=== PATIENT | female | born 1960 | race Caucasian/White ===

== ENCOUNTER 2024-01-20 20:15 | Emergency (ER) | payer BC, SELFPAY ==
[2024-01-20 20:17] VITALS: BP 162/102
[2024-01-20 20:31] VITALS: BMI 31.3
--- NOTE | 2024-01-20 20:47 | ED.GENMED ---
History of Present Illness
General
Chief Complaint: Rectal Bleeding
Source: patient
Exam Limitations: none
Time Seen by Provider: 01/20/24 20:32
History of Present Illness
History of Present Illness:
This is a 63 year old female that comes in with c/o diarrhea and bloody stool. States that she started yesterday with diarrhea. States that today she started with bloody stool. States that she has gone twice today. states that she had something
like this in the past and she was told that it was Colitis. States that she has been nauseated and has a headache. Denies any fever, chills, chest pain, SOB, vomiting, dizziness, urinary burning.
Past History
Past History
ED Past Medical History: HTN and Other (Migraines); Negative Asthma, Hypercholesterolemia or NIDDM
ED Past Surgical History: Appendectomy, Cholecystectomy and Other (Vein stripping)
Patient has exhibited threatening behavior?: No
PSI?: No
Social History
Tobacco: Former smoker
Alcohol: Occasional
Personal:
Living: with family
Review of Systems
Review of Systems
All Other Systems: ROS reviewed and negative except as documented in HPI and ROS
Constitutional: Reports no symptoms; Denies fever or chills
EENT: Reports no symptoms
Respiratory: Reports no symptoms; Denies cough or trouble breathing
Cardiac: Reports no symptoms; Denies chest pain
ABD/GI: Reports abdominal pain, nausea, diarrhea and bloody stools; Denies vomiting
: Reports no symptoms; Denies dysuria, frequency or urgency
Musculoskeletal: Reports no symptoms
Skin: Reports no symptoms
Neurological: Reports headache; Denies dizzy
Psychiatric: Reports no symptoms
Phy Exam
General Physical Exam
General Presentation: mild distress
General age: appears stated age
General Skin: warm and dry
General Habitus: normal
General Mental: alert
General Hydration: appears well hydrated
ENT Exam
ENT Exam: TM's normal, pharynx normal and neck supple
Eye Exam
Eye Exam: EOMI
Cardiovascular Exam
Cardiovascular Exam: regular rate/rhythm, no edema, no murmur and normal peripheral pulses
Pulmonary Exam
Pulmonary Exam: lungs clear, no respiratory distress, no rales, chest non tender, no crackles, no rhonchi, no wheezing and no cough
Gastrointestinal Exam
Gastrointestinal Exam: normal bowel sounds, soft, no organomegaly, no pulsatile mass, non distended and tender (Left sided abd tenderness with palpation)
Musculoskeletal Exam
Musculoskeletal Exam: full ROM and no edema
Skin Exam
Skin Exam: normal color, warm/dry, no rash and no petechia
Psychiatric Exam
Psychiatric Exam: normal mood/affect
Course
Orders/Labs/Results
Orders:
Orders
01/20/24 20:19
EKG [Electrocardiogram (*1)] Urgent
Reason for Study: Abdominal Pain
EKG- Treatment ONCE
01/20/24 20:46
CT Abd/pelvis W Iv Cont Urgent
Comment:
Reason For Exam: left sided abd pain, bloody stool
0.9% Sodium Chloride 1000 ml [Nss] 1,000 ml IV BOLUS
Ketorolac [Toradol] 30 mg IV NOW STA
01/20/24 21:00
Complete Blood Count/With Diff Urgent
Comprehensive Metabolic Panel Urgent
Lactic Acid Urgent
Lipase Urgent
Abnormal Lab Results
01/20/24
21:00
Absolute Neuts (auto) 7.2 H 10^3/uL
(1.4-6.5)
Absolute Monos (auto) 0.7 H 10^3/uL
(0.1-0.6)
Lymphocytes % 16.3 L %
(20.5-51.1)
Glucose 122 H mg/dl
(70-99)
01/20/24 21:00
01/20/24 21:00
Hyperglycemia, Lactic acid normal at 1.2, Lipase normal at 108
Vital Signs
Initial and Last Documented VS:
Initial Vital Signs
Temp Pulse Resp BP Pulse Ox
98.6 F 89 16 162/102 100
01/20/24 20:17 01/20/24 20:17 01/20/24 20:17 01/20/24 20:17 01/20/24 20:17
Last Documented Vital Signs
Temp Pulse Resp BP Pulse Ox
97.9 F 81 20 138/85 97
01/20/24 21:50 01/20/24 21:50 01/20/24 21:50 01/20/24 21:50 01/20/24 21:50
MDM/Problems Addressed
Differential Diagnosis Includes:
Colitis, Diverticulitis. Gi bleeding
MDM/Problems Addressed:
This is a 63 year old female that comes in with c/o diarrhea and today it was bloody diarrhea. states that she has had something like this in the past.
Will check labs, get CT scan, IV fluids and medicate for pain.
Back into see patient. Explained that her blood work is normal and that her CT scan shows Colitis. Will place patient on antibiotics. Patient to follow up with the family doctor. Patient to return with increased or changing pain, fever, or any other
concerns.
Chronic conditions affecting care:
Colitis
Acute Exacerbation and/or Progression of Chronic Illness:
Colitis
*Radiology
Radiology exam reviewed: radiology read reviewed (CT-Colitis in the left lower quadrant involving distal descending colon and proximal sigmoid colon. )
*Pulse Oximetry
Patient hypoxic: no
*EKG
Interpreted by ED Provider?: Yes
Heart Rate: 90
Rate: normal
Rhythm: sinus
Howe: left axis deviation
Interval: normal interval
QRS Pattern: normal QRS
Ischemia: non-specific ST changes (V4, V5, V6, )
*Towel Weaver Interpretation
Rate: tachycardiac
Heart Rate: 100
Rhythm: sinus tachycardia
*Critical Care Note
Total Time (30-74mins, 75-104mins- exclusive of procedures): Not Applicable
ED Attending Note
-
Portions of this chart may have been created with voice recognition software.� Occasional wrong word or��sound alike� substitutions may have occurred due to the inherent limitations of voice recognition software.
Discharge Plan
Departure
Patient Disposition: Home (Routine Discharge)
Date of Disposition: 01/20/24
Time of Disposition: 22:43
Patient with high blood pressure during this ER visit?: Yes
Condition: Good
Covid-19: Not Applicable
Discharge Problem:
Colitis
Instructions: Colitis (DC), BLOOD PRESSURE
Prescriptions:
New
levofloxacin 500 mg tablet
500 mg PO DAILY 9 Days Qty: 9 0RF
metronidazole 500 mg tablet
500 mg PO TID Qty: 29 0RF
No Action
lisinopril
20 mg PO DAILY
Referrals:
Giuliana Miller CRNP [Family Provider] - Call in 1-3 days for appt
Activity Restrictions/Additional Instructions:
As discussed, your blood work is normal. Your CT shows that this is colitis. You have been given your first dose of antibiotics here and prescriptions have been sent to your Pharmacy. Please take as directed until finished. Follow up with the
family doctor for recheck. You may also want to follow up with the GI specialist for further evaluation such as a Colonoscopy after you are feeling better. IF YOU HAVE INCREASED ABD PAIN, FEVER, INCREASED BLEEDING OR YOU HAVE ANY OTHER CONCERNS
PLEASE RETURN TO THE EMERGENCY ROOM .
Interventions
Interventions:
*Risk Screen - Suicide Last Done: 01/20/24 20:17
*General Assessment Last Done: 01/20/24 20:31
*Neglect/Abuse Screening Last Done: 01/20/24 20:17
ED- Fall Risk Assessment Last Done: 01/20/24 21:50
*ED COVID-19 Vaccine History Last Done: 01/20/24 20:31
XH-Jybojk-Jxoqpkkksc Assessment Last Done: 01/20/24 21:50
ED- Cardiac Assessment Last Done: 01/20/24 21:50
ED- Pulmonary Assessment Last Done: 01/20/24 21:50
Discharge Date and Time
Print Language: LEBANESE
[2024-01-20] MEDS: TORADOL 30 MG IV (20:58)
[2024-01-20] MEDS: NSS 1000 IV (20:58)
[2024-01-20 21:02] VITALS: BP 125/90
[2024-01-20 21:08] LABS: % Basophils 0.6 % (0-2); % Immature Granulocytes 0.3 % (0-0.5); % Lymphocytes 16.3 % (20.5-51.1); % Monocytes 6.9 % (1.7-9.3); % Neutrophils 74.9 % (42.2-75.2); Absolute Basophils 0.1 10^3/uL (0-0.2); Absolute Eosinophils 0.1 10^3/uL (0-0.7); Absolute Lymphocytes 1.6 10^3/uL (1.2-3.4); Absolute Monocytes 0.7 10^3/uL (0.1-0.6); Absolute Neutrophils 7.2 10^3/uL (1.4-6.5); Hematocrit 41.9 % (37.0-47.0); Hemoglobin 14.5 g/dL (12.0-16.0); Mean Corp Hgb Conc. 34.6 g/dL (33.0-37.0); Mean Corpuscular Hgb 30.3 pg (27.0-31.0); Mean Corpuscular Volume 87.7 fL (81.0-99.0); Mean Platelet Volume 9.7 fL (7.4-10.4); Nucleated Red Blood Cells % 0 %; Platelet Count 244 10^3/uL (130-400); Red Blood Cell Count 4.78 10^6/uL (4.20-5.40); Red Cell Dist. Width 12.4 % (11.5-14.5); White Blood Cell Count 9.6 10^3/uL (4.8-10.8)
[2024-01-20 21:20] LABS: Lactic Acid 1.2 mmol/L (0.7-2.0)
[2024-01-20 21:28] LABS: ALT (SGPT) 22 U/L (0-35); AST (SGOT) 29 U/L (14-36); Albumin 4.4 g/dl (3.5-5.0); Alkaline Phosphatase 109 U/L (38-126); Blood Urea Nitrogen 10 mg/dl (7-17); Calcium 9.3 mg/dl (8.4-10.2); Carbon Dioxide 24 mmol/L (22-30); Chloride 106 mmol/L (98-107); Estimated Creatinine Clearance 103 ml/min; Glucose 122 mg/dl (70-99); Lipase 108 U/L (23-300); Potassium 4.1 mmol/L (3.5-5.1); Sodium 140 mmol/L (135-145); Total Bilirubin 0.6 mg/dl (0.2-1.3); Total Protein 6.9 g/dl (6.3-8.2); eGFR > 60.00
[2024-01-20 21:47] VITALS: BP 138/85
[2024-01-20 21:50] VITALS: BP 138/85
[2024-01-20] MEDS: LEVAQUIN 500 MG PO (22:54)
[2024-01-20] MEDS: FLAGYL 500 MG PO (22:54)
== END 2024-01-20 23:15 | disposition home or self-care (01) ==
LOC: EMR 20:15
PROVIDERS: Clinical Nurse Specialist Family Health; EMERGENCY PHYSICIAN Emergency Medicine; FAMILY PHYSICIAN Family Medicine
DX: K52.9 Noninfective gastroenteritis and colitis, unspecified (principal); I10 Essential (primary) hypertension; Z90.49 Acquired absence of other specified parts of digestive tract; Z87.891 Personal history of nicotine dependence
CPT/HCPCS: 96374; 96361; 99284; 74177; 80053; 83605; 83690; 85025; 93005; Q9967